=== PATIENT | female | born 1990 | race Caucasian/White ===

== ENCOUNTER 2019-01-25 16:55 | Emergency (ER) | payer OTHER ==
[~2019-01-25] VITALS: Ht 175.3 cm; Wt 90.7 kg
[2019-01-25 20:35] VITALS: BP 160/93
== END 2019-01-25 20:41 | disposition home or self-care (01) ==
LOC: ER 16:55
DX: S96.911A Strain of unspecified muscle and tendon at ankle and foot level, right foot, initial encounter (principal); F12.90 Cannabis use, unspecified, uncomplicated; F17.210 Nicotine dependence, cigarettes, uncomplicated; Z88.0 Allergy status to penicillin; Z90.49 Acquired absence of other specified parts of digestive tract; W18.39XA Other fall on same level, initial encounter; Y92.89 Other specified places as the place of occurrence of the external cause; Y99.8 Other external cause status; Y93.89 Activity, other specified
CPT/HCPCS: 73610